=== PATIENT | male | born 1955 | race Caucasian/White ===

== ENCOUNTER 2018-01-17 12:53 | Inpatient (IN) | payer OTHER ==
[2018-01-17] MEDS ORDERED: KETOROLAC 30 MG/ML 1 ML VIAL IVP STA (14:10)
[2018-01-17] MEDS ORDERED: SODIUM CHLORIDE 0.9% 1,000 ML IV ONE (14:10)
[2018-01-17] MEDS ORDERED: MORPHINE SULFATE 4 MG/ML SYRINGE IVP STA (14:10)
--- NOTE | 2018-01-17 14:26 | ED ---
General Adult HPI - General Chief complaint: Headache Stated complaint: Headaches/double vision-sent from eye center Time Seen by Provider: 01/17/18 13:58 Source: patient Mode of arrival: ambulatory Limitations: no limitations - History of Present Illness Initial comments: Patient is a 62-year-old male who presents with a chief complaint of a headache secondary to herpes zoster ophthalmicus. The patient was diagnosed a week and a half ago and has been completing outpatient management. He was seen by Dr. Grigsby in the office today who was concerned that the patient had diplopia and that his symptoms were not resolving. He recommended that the patient presented to the emergency department for IV antivirals, pain control, and consultation to neurology. On arrival, the patient is in no acute distress. He states that he has severe pain behind the left eye. He states it's a stabbing pain. There are no aggravating or alleviating factors. - Related Data Home Medications Medication Instructions Recorded Confirmed Timolol [Betimol 0.5% Ophth Soln] 1 drop LEFT EYE BID 01/17/18 01/17/18 prednisoLONE ACETATE 1% OPHTH 1 drops LEFT EYE QID 01/17/18 01/17/18 [Pred Forte 1%] valACYclovir HCL [Valtrex] 1,000 mg PO Q8HR 01/17/18 01/17/18 Allergies Allergy/AdvReac Type Severity Reaction Status Date / Time Penicillins Allergy Unknown Verified 01/17/18 14:00 Childhood Review of Systems ROS Statement: Those systems with pertinent positive or pertinent negative responses have been documented in the HPI. ROS Other: All systems not noted in ROS Statement are negative. Eyes: Reports: vision change Past Medical History Past Medical History: No Reported History History of Any Multi-Drug Resistant Organisms: None Reported Past Surgical History: Hernia Repair Past Psychological History: No Psychological Hx Reported Smoking Status: Never smoker Past Alcohol Use History: None Reported Past Drug Use History: None Reported General Exam Limitations: no limitations General appearance: alert, in no apparent distress Head exam: Present: atraumatic, normocephalic Eye exam: Present: PERRL, EOMI, other (There is edema around the left eye, the area does not appear cellulitic.) ENT exam: Present: normal exam Neck exam: Present: normal inspection Respiratory exam: Present: normal lung sounds bilaterally. Absent: respiratory distress, wheezes Cardiovascular Exam: Present: regular rate, normal rhythm GI/Abdominal exam: Present: soft. Absent: distended, tenderness Rectal exam: Present: deferred Extremities exam: Present: normal inspection Back exam: Present: normal inspection, full ROM Neurological exam: Present: alert, oriented X3 Psychiatric exam: Present: normal affect, normal mood Skin exam: Present: warm, dry, intact Course Vital Signs 01/17/18 01/17/18 13:01 15:23 Temperature 98.9 F Pulse Rate 134 H Respiratory 18 16 Rate Blood Pressure 134/79 O2 Sat by Pulse 96 Oximetry Medical Decision Making - Medical Decision Making Patient presents with a chief complaint of headache secondary to herpes zoster ophthalmicus. On initial evaluation, vital signs are stable, patient in no distress. Patient states he is having severe pain behind his eye. I discussed this case with Dr. Grigsby who states the patient will be better served with IV antivirals, pain control, and consult neurology as the patient is experiencing diplopia. Patient treated with IV fluids, IV acyclovir, morphine and Toradol for pain. We'll plan to admit the patient with neuro consultation. 2:45 PM case discussed with Dr. Pruett who accepts admission and requests an MRI. Dr. Howe on consult and was updated on patients presence and condition. He agrees with work up. patient agreeable with plan. 3:58 PM Lab evaluation is unremarkable. on re-evaluation, patient is stable and states pain is improved. he is stable for transfer to the floor. - Lab Data Result diagrams: 01/17/18 15:00 01/17/18 15:00 Disposition Clinical Impression: Herpes zoster ophthalmicus of left eye, Headache Disposition: ADMITTED IP TO THIS [facility] Condition: Good Decision to Admit Reason: Admit from - Out of Hospital Transfer - Req. Specs Out of Hospital Transfer - Requested Specifics: Other Non-Acute
[2018-01-17] MEDS ORDERED: ACYCLOVIR SODIUM 900 MG in SODIUM CHLORIDE 0.9% 250 ML IV ONE (14:30)
[2018-01-17] MEDS ORDERED: NALOXONE 0.4 MG/ML 1 ML VIAL IV PRN (14:42)
[2018-01-17] MEDS ORDERED: traMADol 50 MG TAB PO PRN (14:42)
[2018-01-17] MEDS ORDERED: ONDANSETRON 4 MG/2 ML VIAL IVP PRN (14:42)
[2018-01-17 15:14] LABS: Basophils % (A) 0 %; Eosinophils # (A) 0.3 k/uL (0-0.7); Eosinophils % (A) 3 %; HCT 50.3 % (39.0-53.0); HGB 17.2 gm/dL (13.0-17.5); Lymphocytes # (A) 1.1 k/uL (1.0-4.8); Lymphocytes % (A) 16 %; MCH 30.8 pg (25.0-35.0); MCHC 34.3 g/dL (31.0-37.0); Mean Platelet Volume 6.4; Monocytes # (A) 0.3 k/uL (0-1.0); Monocytes % (A) 5 %; Neutrophils # (A) 5.3 k/uL (1.3-7.7); Neutrophils % (A) 74 %; Platelet Count 218 k/uL (150-450); RBC 5.59 m/uL (4.30-5.90); WBC 7.1 k/uL (3.8-10.6)
[2018-01-17 15:22] LABS: Anion Gap 13 mmol/L; Blood Urea Nitrogen 15 mg/dL (9-20); Calcium 9.1 mg/dL (8.4-10.2); Carbon Dioxide 25 mmol/L (22-30); Chloride 105 mmol/L (98-107); Glucose 108 mg/dL (74-99); Potassium 4.6 mmol/L (3.5-5.1); Sodium 143 mmol/L (137-145)
[2018-01-17] MEDS ORDERED: ACYCLOVIR SODIUM 500 MG in SODIUM CHLORIDE 0.9% 100 ML IVPB SCH (17:15)
--- NOTE | 2018-01-17 18:06 | P.HPIM ---
History of Present Illness 62-year-old male who presents with a chief complaint of a headache secondary to herpes zoster ophthalmicus. The patient was diagnosed a week and a half ago and has been completing outpatient management. He was seen by Dr. Grigsby in the office about a week ago and patient the was complaining of diplopia at the time and patient was seen by the remote sensing advisor today and patient can use to have diplopia and double vision. Patient's diplopia is uniocular it resolves with closing one eye. Patient does not have any nystagmus or any other ocular muscle weakness patient was on valacyclovir still has swelling of the left eye. 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 Patient was sent in here from [facility] advisor clinic for evaluation by neurology because of continued diplopia which may be related to ironirido-cyclitis. Patient denied any symptoms of fifth or seventh cranial nerves Review of Systems REVIEW OF SYSTEMS: CONSTITUTIONAL: No fever, no malaise, no fatigue. HEENT: No hearing problems. Denied any sore throat. CARDIOVASCULAR: No chest pain, orthopnea, PND, no palpitations, no syncope. PULMONARY: No shortness of breath, no cough, no hemoptysis. GASTROINTESTINAL: No diarrhea, no nausea, no vomiting, no abdominal pain. Normoactive bowel sounds. NEUROLOGICAL: No headaches, no weakness, no numbness. HEMATOLOGICAL: Denies any bleeding or petechiae. GENITOURINARY: Denies any burning micturition, frequency, or urgency. MUSCULOSKELETAL/RHEUMATOLOGICAL: Denies any joint pain, swelling, or any muscle pain. ENDOCRINE: Denies any polyuria or polydipsia. The rest of the 14-point review of systems is negative. Past Medical History Past Medical History: No Reported History History of Any Multi-Drug Resistant Organisms: None Reported Past Surgical History: Hernia Repair Past Psychological History: No Psychological Hx Reported Smoking Status: Never smoker Past Alcohol Use History: None Reported Past Drug Use History: None Reported Medications and Allergies Home Medications Medication Instructions Recorded Confirmed Type Timolol [Betimol 0.5% Ophth Soln] 1 drop LEFT EYE BID 01/17/18 01/17/18 History prednisoLONE ACETATE 1% OPHTH 1 drops LEFT EYE QID 01/17/18 01/17/18 History [Pred Forte 1%] valACYclovir HCL [Valtrex] 1,000 mg PO Q8HR 01/17/18 01/17/18 History Allergies Allergy/AdvReac Type Severity Reaction Status Date / Time Penicillins Allergy Unknown Verified 01/17/18 14:00 Childhood Physical Exam Vitals: Vital Signs Temp Pulse Resp BP Pulse Ox 01/17/18 16:00 98.3 F 86 16 153/76 94 L 01/17/18 15:23 16 01/17/18 13:01 98.9 F 134 H 18 134/79 96 Intake and Output 01/17/18 01/17/18 01/17/18 06:59 14:59 22:59 Other: Weight 89.539 kg PHYSICAL EXAMINATION: GENERAL: The patient is alert and oriented x3, not in any acute distress. Well developed, well nourished. HEENT: Pupils are round and equally reacting to light. Normocephalic, atraumatic. No pharyngeal erythema. No thyromegaly. Patient's left eye is swollen, did not assess conjunctiva CARDIOVASCULAR: S1 and S2 present. No murmurs, rubs, or gallops. PULMONARY: Chest is clear to auscultation, no wheezing or crackles. ABDOMEN: Soft, nontender, nondistended, normoactive bowel sounds. No palpable organomegaly. MUSCULOSKELETAL: No joint swelling or deformity. EXTREMITIES: No cyanosis, clubbing, or pedal edema. NEUROLOGICAL: Gross neurological examination did not reveal any focal deficits. Patient's cranial nose are intact patient does not have any ocular muscle weakness or nystagmus, vision appears to be intact SKIN: No rashes. Results CBC & Chem 7: 01/17/18 15:00 01/17/18 15:00 Labs: Abnormal Lab Results - Last 24 Hours (Table) 01/17/18 Range/Units 15:00 Glucose 108 H (74-99) mg/dL Thrombosis Risk Factor Assmnt - Choose All That Apply Any of the Below Risk Factors Present?: Yes Each Factor Represents 1 point: Age 41-60 years, Obesity (BMI >25) Other Risk Factors: No Other congenital or acquired thrombophilia - If yes, enter type in comment: No Thrombosis Risk Factor Assessment Total Risk Factor Score: 2 Thrombosis Risk Factor Assessment Level: Low Risk Assessment and Plan Plan: -Diplopia: Probably secondary to herpes zoster Irido-cyclitis, neurology is being consulted because of the continued symptoms and for the neurological workup if necessary and infectious disease will be consulted and patient will be started on IV acyclovir. -Headache secondary to assessment #1 -Herpes zoster ophthalmicus
[2018-01-17] MEDS: MORPHINE SULFATE 4 MG/ML SYRINGE IV PRN (19:10)
--- NOTE | 2018-01-17 20:52 | MR ---
EXAMINATION TYPE: MR brain wo/w con DATE OF EXAM: 01/17/2018 COMPARISON: NONE HISTORY: Diplopia, herpes zoster TECHNIQUE: Multiplanar, multisequence images of the brain and brainstem is performed without and with IV contras t, utilizing 9 mL intravenous Gadavist . FINDINGS: Diffusion weighted images demonstrate no evidence of a recent infarct or other diffusion ab normality. There is no extra-axial fluid collection. Scattered hyperintensities in the periventricul ar, pericallosal, subcortical white matter are noted on inversion recovery and T2-weighted sequences, approximately 15 foci. The ventricular system and cisternal spaces are normal in size and appearanc e. The brain volume is age appropriate. Midline structures demonstrate normal morphology. The craniocervical junction appears within normal limits. Post contrast images demonstrate no abnormal enhancement. The dural venous sinuses appear pa tent. The visualized sinuses are showing mucoperiosteal thickening in the maxillary sinuses, ethmoid air cells and frontal sinus and the globes are intact. IMPRESSION: Nonspecific white matter demyelination. No abnormal enhancement. Mild sinus disease.
--- NOTE | 2018-01-17 21:53 | P.CNNES ---
History of Present Illness Consult date: 01/17/18 Reason for Consult: Patient admitted with acute herpes zoster ophthalmicus and diplopia. History of Present Illness: This patient is a 62-year-old right-handed white male who states that about 2 weeks ago he had developed severe eye pain involving his left eye. He was seen by a director of laboratory operations seen [facility] and apparently was started on some treatment. Apparently a week ago his symptoms worsened and he was seen locally by the director of laboratory operations Dr. Grigsby. Patient was complaining of ongoing headache symptoms as well as diplopia with an onset of about 1 week. His headaches have been present for about 2 weeks involving mostly his left side. Patient was started nonspecific antiviral treatment as he was diagnosed with herpes Auster ophthalmicus. He states he was placed on oral acyclovir and had completed a complete course of 10 days. This did not help his overall condition. He was seen back in the ophthalmology clinic today and was advised to come to the hospital for admission for further evaluation of his diplopia. Patient states that he was having vertical diplopia for the past 1 week. If he closes one eye the symptoms completely resolved. His headaches have been present for 2 weeks and mostly involving the left side. The patient was subsequently admitted today to the hospital as per the request of Dr. Grigsby. Infectious disease has been consulted as well and we are waiting there recommendations. The patient states that his headache has been present for 2 weeks and mostly involves the left side. This headache symptoms may be related to postherpetic neuralgia. The patient was sent for MRI of the brain today after admission for further assessment. This MRI was done with and without contrast. Impression of the MRI completed today revealed nonspecific white matter demyelination. No abnormal enhancement was seen. There was mild sinus disease noted. Since the patient continues to have headache we have recommended the patient undergo a lumbar puncture for further evaluation to rule out any possibility of encephalitis. This seems to be less likely as he has remained afebrile however due to his headache symptoms further evaluation with spinal fluid analysis is in order. We have discussed this today with the patient. He is agreeable and we will arrange for a lumbar puncture to be done by anesthesia tomorrow morning for further evaluation. Patient will be check for herpes simplex as well as herpes zoster in the spinal fluid. The patient has no previous history of any other major medical condition. He has been started on IV acyclovir at a dosage of 500 mg IV piggyback every 8 hours. We would recommend to continue him on this until he is seen by infectious disease. We will await any further recommendations from Dr. Grigsby regarding his overall retinal changes and I changes secondary to his herpes zoster ophthalmicus. His overall prognosis at this time remains guarded. Review of Systems Constitutional: Denies chills, Denies fever Eyes: left diplopia, left pain, left photophobia, denies blurred vision Ears, nose, mouth and throat: Denies headache, Denies sore throat Cardiovascular: Denies chest pain, Denies shortness of breath Respiratory: Denies cough Gastrointestinal: Denies abdominal pain, Denies diarrhea, Denies nausea, Denies vomiting Musculoskeletal: Denies myalgias Integumentary: Denies pruritus, Denies rash Neurological: Reports double vision, Denies numbness, Denies weakness Psychiatric: Denies anxiety, Denies depression Endocrine: Denies fatigue, Denies weight change Past Medical History Past Medical History: No Reported History History of Any Multi-Drug Resistant Organisms: None Reported Past Surgical History: Hernia Repair Past Psychological History: No Psychological Hx Reported Smoking Status: Never smoker Past Alcohol Use History: None Reported Past Drug Use History: None Reported Medications and Allergies Home Medications Medication Instructions Recorded Confirmed Type Timolol [Betimol 0.5% Ophth Soln] 1 drop LEFT EYE BID 01/17/18 01/17/18 History prednisoLONE ACETATE 1% OPHTH 1 drops LEFT EYE QID 01/17/18 01/17/18 History [Pred Forte 1%] valACYclovir HCL [Valtrex] 1,000 mg PO Q8HR 01/17/18 01/17/18 History Allergies Allergy/AdvReac Type Severity Reaction Status Date / Time Penicillins Allergy Unknown Verified 01/17/18 14:00 Childhood Physical Examination - Vital Signs Vital Signs: Vital Signs Temp Pulse Resp BP Pulse Ox 01/17/18 16:00 98.3 F 86 16 153/76 94 L 01/17/18 15:23 16 01/17/18 13:01 98.9 F 134 H 18 134/79 96 Intake and Output 01/17/18 01/17/18 01/17/18 06:59 14:59 22:59 Other: Weight 89.539 kg - Constitutional General appearance: average body habitus, cooperative - EENT EENT: PERRL, mucous membranes moist - Respiratory Respiratory: lungs clear, normal breath sounds - Cardiovascular Cardiovascular: regular rate, normal S1, normal S2 Extremities: no peripheral edema bilaterally - Gastrointestinal Gastrointestinal: normoactive bowel sounds - Integumentary Integumentary: normal - Neurologic Cranial nerve examination: PERRL, EOMI, VFF, V1/V2/V3 grossly intact, face symmetric, tongue midline, intact gag reflex, intact corneal reflex, normal palatal elevation Speech examination: intact Sensorimotor examination: intact Motor examination - right side: 4/5: biceps, triceps, wrist flexion, wrist extension, waredresser, hip flexors, knee extensors, dorsiflexion, toe extension (EHL) , plantarflexion Motor examination - left side: 4/5: biceps, triceps, wrist flexion, wrist extension, waredresser, hip flexors, knee extensors, dorsiflexion, toe extension (EHL) , plantarflexion Detailed sensory examination: intact Reflex and gait examination: intact Reflexes: 1+: ankle, bicep, knee, tricep - Musculoskeletal Musculoskeletal: no pain - Psychiatric Psychiatric: mood/affect appropriate, cooperative Results - Laboratory Findings CBC and BMP: 01/17/18 15:00 01/17/18 15:00 Abnormal Lab Findings: Abnormal Labs 01/17/18 15:00 Glucose 108 H Assessment and Plan (1) Headache Current Visit: Yes Status: Acute Code(s): R51 - HEADACHE SNOMED Code(s): 77257565 (2) Herpes zoster ophthalmicus of left eye Current Visit: Yes Status: Acute Code(s): B02.30 - ZOSTER OCULAR DISEASE, UNSPECIFIED SNOMED Code(s): 92920250 Plan: This patient is a 8-year-old male who was admitted with a two-week history of severe left eye pain and double vision. Patient states he was treated initially 2 weeks ago for left eye infection. He was seen locally about a week ago by Dr. Grigsby. He was diagnosed with herpes zoster ophthalmicus and was started on oral acyclovir. He completed his course of therapy and was seen back today for follow-up by Dr. Grigsby. Patient continued to complain of diplopia and headache and for this reason was admitted to hospital today for further evaluation. He underwent MRI of the brain results which are noted above. No evidence of any abnormal enhancement or acute changes. We have recommended the patient to undergo lumbar puncture tomorrow for further evaluation. Infectious disease has been consulted as well further their recommendations regarding IV acyclovir. He should continue on this current dosage of 500 mg IV piggyback every 8 hours at this time. We have reviewed the MRI be poor today with the patient. We will have him complete his lumbar puncture and we'll give further recommendations depending on those results. His overall prognosis at this time remains very guarded. Clearly no evidence of brainstem involvement to explain his diplopia at this time. We will continue close neurological follow-up for this patient during this admission. Await further recommendations from other specialists seeing this patient on this admission. His overall prognosis at this time remains very guarded. Time with Patient: Greater than 30
[2018-01-17] MEDS: TIMOLOL 0.5% OPHTH DROPS 5 ML BTL LEFT EYE SCH (22:23)
[2018-01-17] MEDS: prednisoLONE ACETATE 1% OPHTH DROPS 5 ML BTL LEFT EYE SCH (22:23)
[2018-01-17] MEDS: KETOROLAC 30 MG/ML 1 ML VIAL IVP PRN (22:26)
[2018-01-18] MEDS: ACYCLOVIR SODIUM 500 MG in SODIUM CHLORIDE 0.9% 100 ML IVPB SCH ×3 (00:09→15:32)
[2018-01-18] MEDS: KETOROLAC 30 MG/ML 1 ML VIAL IVP PRN ×2 (04:12→16:59)
[2018-01-18] MEDS: prednisoLONE ACETATE 1% OPHTH DROPS 5 ML BTL LEFT EYE SCH ×4 (08:38→20:48)
[2018-01-18] MEDS: TIMOLOL 0.5% OPHTH DROPS 5 ML BTL LEFT EYE SCH ×2 (08:39→20:48)
[2018-01-18] MEDS: MORPHINE SULFATE 4 MG/ML SYRINGE IV PRN ×3 (08:47→23:09)
[2018-01-18] MEDS ORDERED: IV FLUID CONTINUATION 800 ML IV ONE (11:30)
--- NOTE | 2018-01-18 15:37 | P.PN ---
Subjective 62-year-old admitted for diplopia underwent MRI which did not show any significant abnormality neurology evaluated the patient is recommending LP. Patient will be evaluated by infectious disease patient is presently on IV acyclovir. Patient still has some swelling in the left eye. Constitutional: Denied any fatigue denied any fever. Cardio vascular: denied any chest pain, palpitations Gastrointestinal denied any nausea vomiting Pulmonary: Denied any shortness of breath cough Neurologic denied any new focal deficits Objective - Vital Signs Vital signs: Vital Signs Temp 98.3 F 01/18/18 11:21 Pulse 75 01/18/18 12:23 Resp 18 01/18/18 12:23 BP 180/108 01/18/18 12:25 Pulse Ox 96 01/18/18 12:23 Intake & Output 01/17/18 01/18/18 01/18/18 18:59 06:59 18:59 Intake Total 1099 10 Balance 1099 10 Weight 89.539 kg Intake: IV 10 Intake, IV Titration 1099 Amount Acyclovir Sodium 500 mg 100 In Sodium Chloride 0.9% 100 ml @ 100 mls/hr IVPB Q8HR [facility] Rx#:[id number] Sodium Chloride 0.9% 1, 999 000 ml @ 999 mls/hr IV . Q1H1M ONE Rx#:[id number] Other: Voiding Method Toilet # Voids 1 - Exam PHYSICAL EXAMINATION: GENERAL: The patient is alert and oriented x3, not in any acute distress. Well developed, well nourished. HEENT: Pupils are round and equally reacting to light. Normocephalic, atraumatic. No pharyngeal erythema. No thyromegaly. Patient's left eye is swollen, did not assess conjunctiva CARDIOVASCULAR: S1 and S2 present. No murmurs, rubs, or gallops. PULMONARY: Chest is clear to auscultation, no wheezing or crackles. ABDOMEN: Soft, nontender, nondistended, normoactive bowel sounds. No palpable organomegaly. MUSCULOSKELETAL: No joint swelling or deformity. EXTREMITIES: No cyanosis, clubbing, or pedal edema. NEUROLOGICAL: Gross neurological examination did not reveal any focal deficits. Patient's cranial nose are intact patient does not have any ocular muscle weakness or nystagmus, vision appears to be intact SKIN: No rashes. - Labs CBC & Chem 7: 01/17/18 15:00 01/17/18 15:00 Labs: Abnormal Lab Results - Last 24 Hours (Table) 01/17/18 Range/Units 15:00 Glucose 108 H (74-99) mg/dL Assessment and Plan Plan: -Diplopia: Probably secondary to herpes zoster Irido-cyclitis, neurology is being consulted because of the continued symptoms and for the neurological workup if necessary and infectious disease will be consulted and patient will be started on IV acyclovir.patient's MRI did not show any significant abnormality that can explain diplopia. Patient underwent LP results of which are still pending -Headache secondary to assessment #1 -Herpes zoster ophthalmicus
[2018-01-18 16:21] LABS: Appearance,CSF Clear; CSF Tube Number 4; CSF Tube Volume 2; Nucleated Cells, CSF 1 u/L (0-5); Red Blood Cell,CSF 0 u/L (0-10)
[2018-01-18 16:26] LABS: Glucose,CSF 52 mg/dL (40-70); Total Protein,CSF 70 mg/dL (12-60)
[2018-01-18] MEDS ORDERED: ACYCLOVIR SODIUM 900 MG in SODIUM CHLORIDE 0.9% 250 ML IV ONE (22:30)
[2018-01-18] MEDS: methylPREDNISolone SOD SUCCI 125 MG/2 ML VIAL IV SCH (23:02)
--- NOTE | 2018-01-18 23:17 | P.PN ---
Subjective Progress Note Date: 01/18/18 This patient is a 62-year-old right-handed white male who was admitted to Hospital with symptoms of herpes zoster ophthalmicus involving his left eye. Patient was found to have increased headache and diplopia and was admitted to hospital for further evaluation. Patient underwent MRI of the brain yesterday which failed to reveal any significant findings yesterday. There was no evidence of any brainstem infarction that would account for his diplopia. He may require reevaluation by Dr. Grigsby in the ophthalmology clinic once he is discharged. He underwent a lumbar puncture today and we are waiting final results of the spinal fluid analysis. Patient is to be evaluated by infectious disease and he is currently been placed on IV acyclovir. He still has some swelling around his left eye on examination today. He states his headaches are slightly better. We are awaiting the final spinal fluid results to rule out any possibility of herpes zoster in the CSF. His CSF protein was slightly elevated at 70. CSF glucose was 52. His Gram stain revealed no organisms. As noted we are still awaiting the herpes zoster and herpes simplex virus analysis in the spinal fluid. We will continue close neurological follow-up for the patient during this admission. Objective - Vital Signs Vital signs: Vital Signs Temp 98.6 F 01/18/18 14:17 Pulse 90 01/18/18 14:17 Resp 18 01/18/18 14:17 BP 183/105 01/18/18 14:17 Pulse Ox 98 01/18/18 14:17 Intake & Output 01/18/18 01/18/18 01/19/18 06:59 18:59 06:59 Intake Total 1099 10 Balance 1099 10 Intake: IV 10 Intake, IV Titration 1099 Amount Acyclovir Sodium 500 mg 100 In Sodium Chloride 0.9% 100 ml @ 100 mls/hr IVPB Q8HR [facility] Rx#:[id number] Sodium Chloride 0.9% 1, 999 000 ml @ 999 mls/hr IV . Q1H1M ONE Rx#:[id number] Other: Voiding Method Toilet # Voids 1 1 # Bowel Movements 0 - Exam Physical examination: PHYSICAL EXAMINATION: Patient is resting comfortably in bed. VITAL SIGNS: Blood pressure is [173/105]. Heart rate is [90]. Respiration is [18 ]. Temperature is [98.7]. HEENT: Head is atraumatic, neck is supple, there were no carotid bruits. CHEST: Lungs are clear to auscultation and percussion. CARDIAC: S1, S2 normal rate and rhythm. There is no murmur. ABDOMEN: Soft and nontender. Bowel sounds are present. EXTREMITIES: There is no pedal edema. Peripheral pulses are present. Neurological examination: Patient's neurological examination is unchanged from yesterday. He continues to have swelling around his left eyelid. He is being treated for his herpes zoster ophthalmicus involving the left eye. His neurological examination reveals slight eye gaze weakness on testing. There is no focal motor deficit on examination. - Labs CBC & Chem 7: 01/17/18 15:00 01/17/18 15:00 Labs: Abnormal Lab Results - Last 24 Hours (Table) 01/17/18 Range/Units 11:30 CSF Total Protein 70 H (12-60) mg/dL Microbiology - Last 24 Hours (Table) 01/17/18 11:30 CSF Gram Stain - Preliminary Cerebral Spinal Fluid CSF Culture - Preliminary Assessment and Plan (1) Headache Current Visit: Yes Status: Acute Code(s): R51 - HEADACHE SNOMED Code(s): 10030131 (2) Herpes zoster ophthalmicus of left eye Current Visit: Yes Status: Acute Code(s): B02.30 - ZOSTER OCULAR DISEASE, UNSPECIFIED SNOMED Code(s): 93382083 Plan: This patient is a 8-year-old male who was admitted with a two-week history of severe left eye pain and double vision. Patient states he was treated initially 2 weeks ago for left eye infection. He was seen locally about a week ago by Dr. Grigsby. He was diagnosed with herpes zoster ophthalmicus and was started on oral acyclovir. He completed his course of therapy and was seen back today for follow-up by Dr. Grigsby. Patient continued to complain of diplopia and headache and for this reason was admitted to hospital today for further evaluation. He underwent MRI of the brain results which are noted above. No evidence of any abnormal enhancement or acute changes. We have recommended the patient to undergo lumbar puncture tomorrow for further evaluation. Infectious disease has been consulted as well further their recommendations regarding IV acyclovir. He should continue on this current dosage of 500 mg IV piggyback every 8 hours at this time. We have reviewed the MRI today with the patient. We will have him complete his lumbar puncture and we will give further recommendations depending on those results. His overall prognosis at this time remains very guarded. Clearly no evidence of brainstem involvement to explain his diplopia at this time. We will continue close neurological follow-up for this patient during this admission. Patient underwent lumbar puncture today results of which are noted above. We will await further recommendations from infectious disease. His overall prognosis at this time remains very guarded.
[2018-01-19] MEDS: methylPREDNISolone SOD SUCCI 125 MG/2 ML VIAL IV SCH ×4 (05:35→23:32)
[2018-01-19] MEDS: KETOROLAC 30 MG/ML 1 ML VIAL IVP PRN ×4 (05:35→23:29)
--- NOTE | 2018-01-19 06:41 | CONS ---
CONSULTATION DATE OF SERVICE: 01/18/2018. REASON FOR CONSULTATION: Herpes zoster ophthalmicus and diplopia. HISTORY OF PRESENT ILLNESS: The patient is a 62-year-old male who apparently developed a rash to the left periorbital area about 2 weeks ago for which the patient has been evaluated by a local office machinery or equipment installer where the patient was started on Valtrex 1 gram q.8. The patient's rash seemed to have been improving; however, the patient did have problem with drooping of the left upper eyelid along with diplopia for which the patient followed up with office machinery or equipment installer in [facility], Dr. Grigsby, who apparently started the patient on another dose of Valtrex and gave some eye drops. The patient also has been complaining of headaches, mostly in the left periorbital area, describing to more of a dull aching pain 5 to 6/10, with no radiation. The patient denies having any nausea, no vomiting. Denies having any fever or any chills. The patient was re-evaluated in the ophthalmology clinic yesterday and the patient with diplopia and no improvement has been sent to the ER for further evaluation and an MRI which was completed which did show some nonspecific changes. The patient was started on acyclovir at 500 mg q.8 admitted to the hospital. Infectious Disease was consulted for further recommendation. The patient also underwent a lumbar puncture this afternoon, which was clear, colorless, only 1 cell, glucose of 52, protein was 70. His white count is normal. The patient's rash has currently completed resolved. The main symptom is to be headache and diplopia. REVIEW OF SYSTEMS: CONSTITUTIONAL: Positive for weakness, but no high-grade fever. EYES: As per HPI. ENT: No complaint. RESPIRATORY: No complaint. CARDIOVASCULAR: No complaint. GENITOURINARY: No complaint. GASTROINTESTINAL: No complaint. MUSCULOSKELETAL: No complaint. INTEGUMENTARY: No complaint. PSYCHOLOGICAL: No complaint. ENDOCRINE: No complaint. NEUROLOGICAL: As per HPI. PAST MEDICAL HISTORY: No major illnesses. PAST SURGICAL HISTORY: Hernia repair. SOCIAL HISTORY: Denies smoking, drinking, or any drug use. FAMILY HISTORY: No pertinent findings noticed. ALLERGIES: Allergies to PENICILLIN. No history of anaphylaxis. MEDICATIONS: Medications include the patient is currently on acyclovir 500 IV q.8. He is on Toradol, morphine sulfate, Narcan, Zofran, prednisone eyedrops, Timoptic and Ultram. PHYSICAL EXAMINATION: On examination, blood pressure is 183/105 with a pulse of 90, temperature 98.6. He is 98% on room air. General description is a middle-aged male lying in bed in no distress. No tachypnea or accessory muscle of respiration use. HEENT examination shows no pallor or scleral icterus. His pupils are equal, round and reactive. Oral mucous membrane dry. No pharyngeal erythema or thrush. NECK: Trachea central. No thyromegaly. LUNGS: Unlabored breathing, clear to auscultation anteriorly. No wheeze or crackle. HEART: S1, S2. Regular rate and rhythm. ABDOMEN: Soft, no tenderness. No guarding or rigidity. EXTREMITIES: No edema feet. SKIN EXAMINATION: No rashes or mass palpable. NEUROLOGICAL: Patient is awake, alert, oriented x3. Mood and affect normal. LABS: Hemoglobin is 17.2, white count 7.1 with a BUN of 15, creatinine 0.70. Electrolytes have been normal. CSF examination was normal except slightly elevated protein. MRI with nonspecific changes. DIAGNOSTIC IMPRESSION AND PLAN: Patient with left-sided headache in a patient who also has drooping of the left upper eyelid with diplopia in a patient with recent diagnosis of herpes zoster ophthalmicus that has been treated with Valtrex 1 gram q.8 for more than 7 days, which is an appropriate dose now which seemed to have possible with a question of possible or because of his diplopia and drooping of the upper eyelid. The patient did have a CSF examination completed and essentially normal except mildly elevated protein. PLAN: 1. Acyclovir dose should be adjusted to 10 mg/kg which is recommended use for acute herpes zoster, but clinically I think the patient has received adequate antiviral beginning of treatment with resolution of his rash. 2. Might try short course of steroid to see if that will help cut down the inflammation of those nerves and help with his neurologic symptom. 3. The patient will benefit from a detailed examination or possible transfer to tertiary care if his symptoms do not improve in the next 24 hours. 4. The patient also need aggressive treatment underlying hypertension that may be contributing to some of his symptomatology. Thank you for this consultation. Will follow this patient along with you. MMODL / IJN: [id number] /
[2018-01-19] MEDS: prednisoLONE ACETATE 1% OPHTH DROPS 5 ML BTL LEFT EYE SCH ×4 (07:53→20:33)
[2018-01-19] MEDS: TIMOLOL 0.5% OPHTH DROPS 5 ML BTL LEFT EYE SCH ×2 (07:53→20:33)
[2018-01-19] MEDS ORDERED: MORPHINE ORAL SOLN 10 MG/5 ML CUP PO PRN (11:23)
--- NOTE | 2018-01-19 13:25 | P.PN ---
Subjective 62-year-old admitted for diplopia underwent MRI which did not show any significant abnormality neurology evaluated the patient is recommending LP. Patient will be evaluated by infectious disease patient is presently on IV acyclovir. Patient still has some swelling in the left eye. Patient still complaining of from diplopia Objective - Vital Signs Vital signs: Vital Signs Temp 98.3 F 01/19/18 07:00 Pulse 89 01/19/18 07:00 Resp 20 01/19/18 07:00 BP 141/93 01/19/18 07:00 Pulse Ox 93 L 01/19/18 07:00 Intake & Output 01/18/18 01/19/18 01/19/18 18:59 06:59 18:59 Intake Total 10 500 320 Balance 10 500 320 Weight 89.539 kg Intake: IV 10 Oral 500 320 Other: Voiding Method Toilet Toilet Toilet # Voids 1 1 # Bowel Movements 0 0 - Exam GENERAL: The patient is alert and oriented x3, not in any acute distress. Well developed, well nourished. HEENT: Pupils are round and equally reacting to light. Normocephalic, atraumatic. No pharyngeal erythema. No thyromegaly. Patient's left eye is swollen, did not assess conjunctiva -Left eye conjunctiva is related, mild. No vesicles or rashes noted, no ulcers CARDIOVASCULAR: S1 and S2 present. No murmurs, rubs, or gallops. PULMONARY: Chest is clear to auscultation, no wheezing or crackles. ABDOMEN: Soft, nontender, nondistended, normoactive bowel sounds. No palpable organomegaly. MUSCULOSKELETAL: No joint swelling or deformity. EXTREMITIES: No cyanosis, clubbing, or pedal edema. NEUROLOGICAL: Gross neurological examination did not reveal any focal deficits. Patient's cranial nose are intact patient does not have any ocular muscle weakness or nystagmus, vision appears to be intact SKIN: No rashes. - Labs CBC & Chem 7: 01/17/18 15:00 01/17/18 15:00 Labs: Abnormal Lab Results - Last 24 Hours (Table) 01/17/18 Range/Units 11:30 CSF Total Protein 70 H (12-60) mg/dL Microbiology - Last 24 Hours (Table) 01/17/18 11:30 CSF Gram Stain - Preliminary Cerebral Spinal Fluid CSF Culture - Preliminary Assessment and Plan Plan: -Diplopia: Probably secondary to herpes zoster Irido-cyclitis, neurology is being consulted because of the continued symptoms and for the neurological workup if necessary and infectious disease will be consulted and patient will be started on IV acyclovir.patient's MRI did not show any significant abnormality that can explain diplopia. Patient underwent LP results of which are noted, looks noninfectious. Follow up with ID. Patient's states that his diplopia has resolved today -Headache secondary to assessment #1 -Herpes zoster ophthalmicus
--- NOTE | 2018-01-19 21:05 | PN ---
PROGRESS NOTE DATE OF SERVICE: 01/19/2018 REASON FOR FOLLOWUP: Herpes zoster ophthalmicus with diplopia. INTERVAL HISTORY: The patient is afebrile. The patient's left periorbital swelling has improved as well as the headache, and the diplopia has improved as well compared to yesterday after the patient was started on steroids. Patient denies having any chest pain, shortness of breath or cough. No abdominal pain or any diarrhea. PHYSICAL EXAMINATION: Blood pressure is 141/93 with a pulse of 89, temperature of 98.3. He is 93% on room air. General description is a middle-aged male lying in bed in no distress. HEENT EXAMINATION: The left seems to have improved. No rash. LUNGS: Unlabored breathing. Clear to auscultation anteriorly. HEART: S1, S2. Regular rate and rhythm. ABDOMEN: Soft. No tenderness. LABS: No new labs have been obtained today. DIAGNOSTIC IMPRESSION AND PLAN: Patient with left herpes zoster ophthalmicus that has been treated in the outpatient setting with oral Valtrex, now coming with diplopia, more likely secondary to the involvement of the with some improvement with the steroid possibly helping with the inflammation surrounding the nerve. That may be continued for a short course and transition to oral steroids on discharge. Continue with supportive care. MMODL / IJN: [id number] /
[2018-01-20 00:07] VITALS: RESP 20
--- NOTE | 2018-01-20 00:48 | P.PN ---
Subjective Progress Note Date: 01/19/18 This patient is a 62-year-old right-handed white male who was admitted to Hospital with symptoms of herpes zoster ophthalmicus involving his left eye. Patient was found to have increased headache and diplopia and was admitted to hospital for further evaluation. Patient underwent MRI of the brain yesterday which failed to reveal any significant findings yesterday. There was no evidence of any brainstem infarction that would account for his diplopia. He may require reevaluation by Dr. Grigsby in the ophthalmology clinic once he is discharged. He underwent a lumbar puncture today and we are waiting final results of the spinal fluid analysis. Patient is to be evaluated by infectious disease and he is currently been placed on IV acyclovir. He still has some swelling around his left eye on examination today. He states his headaches are slightly better. We are awaiting the final spinal fluid results to rule out any possibility of herpes zoster in the CSF. His CSF protein was slightly elevated at 70. CSF glucose was 52. His Gram stain revealed no organisms. As noted we are still awaiting the herpes zoster and herpes simplex virus analysis in the spinal fluid. CSF spinal fluid did come back negative for HSV 1 and HSV 2. The patient has shown significant improvement today in that there is less swelling of the left eyelid. He also states that since early afternoon his double vision has completely resolved. He is to continue on IV acyclovir. We' re waiting any further recommendations from infectious disease. Patient possibly will be able to be discharged home soon and may follow-up with Dr. Grigsby in the outpatient clinic. We will continue close neurological follow-up for the patient during this admission. His overall prognosis remains guarded. Objective - Vital Signs Vital signs: Vital Signs Temp 97.2 F L 01/19/18 15:00 Pulse 100 01/19/18 15:00 Resp 16 01/19/18 15:00 BP 171/94 01/19/18 15:00 Pulse Ox 95 01/19/18 15:00 Intake & Output 01/18/18 01/19/18 01/19/18 18:59 06:59 18:59 Intake Total 10 500 560 Balance 10 500 560 Weight 89.539 kg Intake: IV 10 Oral 500 560 Other: Voiding Method Toilet Toilet Toilet # Voids 1 1 1 # Bowel Movements 0 0 - Exam Physical examination: PHYSICAL EXAMINATION: Patient is resting comfortably in bed. VITAL SIGNS: Blood pressure is [171/94]. Heart rate is [100]. Respiration is [16 ]. Temperature is [97.2]. HEENT: Head is atraumatic, neck is supple, there were no carotid bruits. CHEST: Lungs are clear to auscultation and percussion. CARDIAC: S1, S2 normal rate and rhythm. There is no murmur. ABDOMEN: Soft and nontender. Bowel sounds are present. EXTREMITIES: There is no pedal edema. Peripheral pulses are present. Neurological examination: Patient's neurological examination is unchanged from yesterday. He continues to have swelling around his left eyelid. He is being treated for his herpes zoster ophthalmicus involving the left eye. His neurological examination reveals slight eye gaze weakness on testing. There is no focal motor deficit on examination. - Labs CBC & Chem 7: 01/17/18 15:00 01/17/18 15:00 Labs: Abnormal Lab Results - Last 24 Hours (Table) 01/17/18 Range/Units 11:30 CSF Total Protein 70 H (12-60) mg/dL Microbiology - Last 24 Hours (Table) 01/17/18 11:30 CSF Gram Stain - Preliminary Cerebral Spinal Fluid CSF Culture - Preliminary Assessment and Plan (1) Headache Current Visit: Yes Status: Acute Code(s): R51 - HEADACHE SNOMED Code(s): 84271613 (2) Herpes zoster ophthalmicus of left eye Current Visit: Yes Status: Acute Code(s): B02.30 - ZOSTER OCULAR DISEASE, UNSPECIFIED SNOMED Code(s): 08036508 Plan: Patient being treated for acute symptoms of herpes zoster ophthalmicus. This is affected his left eye. He is showing good improvement today since admission to hospital a few days ago. He did undergo an MRI of the brain which did come back negative for any acute changes. No evidence of brainstem stroke to produce diplopia. The patient continues on IV acyclovir. His diplopia completely resolve this afternoon. His left eyelid swelling also much improved today. We will continue to follow his progress closely during this admission. Spinal fluid results are as noted above. His overall prognosis at this time remains guarded. We will await further recommendations from infectious disease. His overall prognosis at this time remains guarded.
[2018-01-20] MEDS: methylPREDNISolone SOD SUCCI 125 MG/2 ML VIAL IV SCH ×2 (05:32→12:51)
[2018-01-20 06:07] VITALS: BP 133/76; PULSE 104; TEMP 97.5
[2018-01-20] MEDS: TIMOLOL 0.5% OPHTH DROPS 5 ML BTL LEFT EYE SCH (08:01)
[2018-01-20] MEDS: prednisoLONE ACETATE 1% OPHTH DROPS 5 ML BTL LEFT EYE SCH ×2 (08:01→12:51)
--- NOTE | 2018-01-20 14:33 | PN ---
PROGRESS NOTE DATE OF SERVICE: 01/20/2018 REASON FOR FOLLOWUP: Left thigh presumptive pulmonary with diplopia. INTERVAL HISTORY: The patient is afebrile the patient diplopia has resolved. His headache has improved. Denies any chest pain, shortness of breath, no cough, no abdominal pain, no diarrhea. PHYSICAL EXAMINATION: Blood pressure 133/76, pulse of 104, temperature 98.5, Pulse ox room air is .54% we description is a middle-aged male lying in bed, in no distress. RESPIRATORY SYSTEM: Unlabored breathing, clear to auscultation anteriorly. HEART: S1, S2. Regular rate and rate. ABDOMEN: Soft, no tenderness. LABS: HSV, DNA by PCR has been negative. DIAGNOSTIC IMPRESSION AND PLAN: Patient with herpes zoster ophthalmicus has been treated in the outpatient setting with a 12 day course of Valtrex should be more than enough and does not need any further antibiotic at this point. Patient did have a possible trochanter paralysis that has led to diplopia and seemed to have improved with the steroids, that it can be tapered down to oral prednisone in the outpatient setting. Continue supportive care. No need for any antiviral on discharge. MMODL / IJN: [id number] /
[2018-01-20] MEDS: KETOROLAC 30 MG/ML 1 ML VIAL IVP PRN (14:38)
--- NOTE | 2018-01-20 16:56 | P.PN ---
Subjective Progress Note Date: 01/20/18 This patient is a 62-year-old right-handed white male who was admitted to Hospital with symptoms of herpes zoster ophthalmicus involving his left eye. Patient was found to have increased headache and diplopia and was admitted to hospital for further evaluation. Patient underwent MRI of the brain yesterday which failed to reveal any significant findings yesterday. There was no evidence of any brainstem infarction that would account for his diplopia. He may require reevaluation by Dr. Grigsby in the ophthalmology clinic once he is discharged. He underwent a lumbar puncture today and we are waiting final results of the spinal fluid analysis. Patient is to be evaluated by infectious disease and he is currently been placed on IV acyclovir. He still has some swelling around his left eye on examination today. He states his headaches are slightly better. We are awaiting the final spinal fluid results to rule out any possibility of herpes zoster in the CSF. His CSF protein was slightly elevated at 70. CSF glucose was 52. His Gram stain revealed no organisms. As noted we are still awaiting the herpes zoster and herpes simplex virus analysis in the spinal fluid. CSF spinal fluid did come back negative for HSV 1 and HSV 2. The patient has shown significant improvement today in that there is less swelling of the left eyelid. He also states that since early afternoon his double vision has completely resolved. His IV acyclovir has been discontinued by infectious disease. Patient continues to have good improvement with his headache symptoms. He feels it is much better today. As noted yesterday his diplopia has completely resolved. He has responded well to steroids which may be slowly tapered to oral prednisone. Infectious diseases recommending no antivirals are needed for him at discharge. Patient possibly will be able to be discharged home soon and may follow-up with Dr. Grigsby in the outpatient clinic. Patient has been cleared for discharge home later today. He should follow up with his flow coordinator as noted above early next week. We will continue close neurological follow-up for the patient during this admission. His overall prognosis remains guarded. Objective - Vital Signs Vital signs: Vital Signs Temp 97.5 F L 01/20/18 05:45 Pulse 104 H 01/20/18 05:45 Resp 20 01/20/18 05:45 BP 133/76 01/20/18 05:45 Pulse Ox 94 L 01/20/18 05:45 Intake & Output 01/19/18 01/20/18 01/20/18 18:59 06:59 18:59 Intake Total 560 500 Output Total 2 Balance 560 498 Weight 89.539 kg Intake: Oral 560 500 Output: Urine 2 Other: Voiding Method Toilet Toilet Toilet # Voids 1 0 1 # Bowel Movements 0 - Exam Physical examination: PHYSICAL EXAMINATION: Patient is resting comfortably in bed. VITAL SIGNS: Blood pressure is [133/76]. Heart rate is [104]. Respiration is [20 ]. Temperature is [97.5]. HEENT: Head is atraumatic, neck is supple, there were no carotid bruits. CHEST: Lungs are clear to auscultation and percussion. CARDIAC: S1, S2 normal rate and rhythm. There is no murmur. ABDOMEN: Soft and nontender. Bowel sounds are present. EXTREMITIES: There is no pedal edema. Peripheral pulses are present. Neurological examination: Patient's neurological examination is unchanged from yesterday. He continues to have swelling around his left eyelid. He is being treated for his herpes zoster ophthalmicus involving the left eye. His neurological examination reveals slight eye gaze weakness on testing. There is no focal motor deficit on examination. - Labs CBC & Chem 7: 01/17/18 15:00 01/17/18 15:00 Labs: Microbiology - Last 24 Hours (Table) 01/17/18 11:30 CSF Gram Stain - Preliminary Cerebral Spinal Fluid CSF Culture - Preliminary 01/18/18 11:30 ANGELA Preparation - Final Cerebral Spinal Fluid Assessment and Plan (1) Headache Current Visit: Yes Status: Acute Code(s): R51 - HEADACHE SNOMED Code(s): 79597105 (2) Herpes zoster ophthalmicus of left eye Current Visit: Yes Status: Acute Code(s): B02.30 - ZOSTER OCULAR DISEASE, UNSPECIFIED SNOMED Code(s): 86427382 Plan: Patient being treated for acute symptoms of herpes zoster ophthalmicus. This is affected his left eye. He is showing good improvement today since admission to hospital a few days ago. He did undergo an MRI of the brain which did come back negative for any acute changes. No evidence of brainstem stroke to produce diplopia. The patient continues on IV acyclovir. His diplopia completely resolve this afternoon. His left eyelid swelling also much improved today. We will continue to follow his progress closely during this admission. Spinal fluid results are as noted above. His overall prognosis at this time remains guarded. Patient today has noted improvement with this headache. This may be due to better control of his blood pressure. He has responded well to steroid treatment as per infectious disease. He may be tapered down to oral prednisone at discharge. Patient is being ready for possible discharge home today. He should follow-up with Dr. Danielle MON in the ophthalmology clinic next week. His overall prognosis at this time remains guarded.
--- NOTE | 2018-01-20 18:07 | P.DS ---
Providers Date of admission: 01/17/18 14:42 Attending physician: Cyndi Pruett Consults: 01/17/18 14:42 Consult Physician Stat Consulting Provider: Lincoln Howe Consult Reason/Comments: diplopia Do you want consulting provider notified?: Yes 01/17/18 17:09 Consult Physician Routine Consulting Provider: Estee Martinez Consult Reason/Comments: Herpis opthalmicus Do you want consulting provider notified?: Yes 01/18/18 07:00 Consult to Anesthesia Routine Consulting Provider: Anesthesia,Services Consult Reason/Comments: Lumbar puncture to r/o herpes zoster encephalitis. Primary care physician: Stated None Hospital Course: 62-year-old male who presents with a chief complaint of a headache secondary to herpes zoster ophthalmicus of his left eye. The patient was diagnosed a week and a half ago and has been completing outpatient management. However he presents this time complaining of diplopia patient has been evaluated by neurology and ID consult tenths. Brain MRI was negative for acute stroke. LP was negative for infection. Patient already completed his course of antibiotics with acyclovir as an outpatient. Patient was started on steroids, and he showed interval improvement and his diplopia resolved completely yesterday and today. Patient feels his vision is back to normal. He is asymptomatic. Patient was cleared by neurology and ID for discharge, as per ID no need for antibiotic coverage however he was discharged on tapered dose of steroids. Prescriptions provided the patient and informed staff give him eyedrops upon discharge Patient was found stable and can be discharged home however he needs follow-up as an outpatient as per patient he said he doesn't have a PCP but he is going to see his property damage claims adjustor in one week. Physical examination Gen. AAOX3, not in distress eye Exam: Mild erythema of the left conjunctiva, improving. Right eye exam was unremarkable CVS: S1-S2, RRR, no murmur Lungs: B/L CTA, no wheezing, not in respiratory distress Abdomen: soft, no distention, no tenderness, positive bowel sounds Extremities: no edema or induration, palpable peripheral pulses Time spent more than 35 minutes Patient Condition at Discharge: Good Plan - Discharge Summary New Discharge Prescriptions: New Hydrocodone/Acetaminophen [[place] 5-325] 1 tab PO Q6H PRN #16 tab PRN Reason: Pain predniSONE 10 mg PO DIRECTED #13 tab Continue prednisoLONE ACETATE 1% OPHTH [Pred Forte 1%] 1 drops LEFT EYE QID Timolol [Betimol 0.5% Ophth Soln] 1 drop LEFT EYE BID Discontinued valACYclovir HCL [Valtrex] 1,000 mg PO Q8HR Discharge Medication List Timolol [Betimol 0.5% Ophth Soln] 1 drop LEFT EYE BID 01/17/18 [History] prednisoLONE ACETATE 1% OPHTH [Pred Forte 1%] 1 drops LEFT EYE QID 01/17/18 [ History] Hydrocodone/Acetaminophen [[place] 5-325] 1 tab PO Q6H PRN #16 tab 01/20/18 [Rx] predniSONE 10 mg PO DIRECTED #13 tab 01/20/18 [Rx] Follow up Appointment(s)/Referral(s): Gerber Flannery MD [STAFF PHYSICIAN] - 01/27/18 (Office closed, please call for appointment. ) Tank Nair DO [REFERRING] - 1 Week (Office closed, please call for appointment.) Patient Instructions/Handouts: Shingles (DC) Activity/Diet/Wound Care/Special Instructions: Regular diet. Activity as tolerated. Discharge Disposition: HOME SELF-CARE
--- NOTE | 2018-01-26 10:14 | P.PCN ---
Date of Procedure: 01/18/18 Surgeon: James Peterson Description of Procedure: Preoperative diagnosis: Herpes zoster Post operative diagnoses: Herpes zoster Anesthesia local infiltration with lidocaine 1% 2 mL. Condition: stable Complication: none. Description of the procedure procedure risk and benefits discussed with the patient and family, consent signed. Patient was taken to the procedure area placed in seated position. Local infiltration of the skin and subcutaneous tissue with lidocaine 1%. A 22-gauge Quincke-type needle advanced slowly at L4 - 5 interlaminar space.CSF was collected. A total of 9 ML of clear cerebrospinal fluid collected in 4 different tubes 2-2-1/2 mL in each, then the needle removed and a Band-Aid applied and patient tolerated the procedure well without any complications.
== END 2018-01-20 17:00 | disposition home or self-care (01) | DRG 125 ==
LOC: EC 12:53 → 4MS4W 14:42
PROVIDERS: ADMIT Hospitalist; ATTEND Hospitalist
PROC: 009U3ZX Drainage of Spinal Canal, Percutaneous Approach, Diagnostic (ICD-10-PCS; principal; 2018-01-18 11:30)
DX: B02.30 Zoster ocular disease, unspecified (principal); B02.32 Zoster iridocyclitis; R51 Headache; Z88.0 Allergy status to penicillin
CPT/HCPCS: 62270; 70553; 80048; 82945; 84157; 85025; 87070; 87205; 87220; 87529; 89050; 96365; 96366; 96375; 96376; 99284

== ENCOUNTER 2018-02-09 20:58 | Emergency (ER) | payer OTHER ==
[2018-02-09] MEDS ORDERED: ACYCLOVIR SODIUM 500 MG in SODIUM CHLORIDE 0.9% 100 ML IVPB STA (22:41)
[2018-02-09] MEDS ORDERED: cloNIDine HCL 0.2 MG TAB PO STA (22:48)
--- NOTE | 2018-02-09 22:48 | ED ---
Eye Problem HPI - General Chief complaint: Eye Problems Stated complaint: shingles/double vision/headaches Time Seen by Provider: 02/09/18 22:09 Source: patient Mode of arrival: ambulatory Limitations: no limitations - History of Present Illness Initial comments: This patient is a 62-year-old man who states he was sent in by the clinic today to have further treatment for herpes zoster ophthalmicus. The patient had been admitted here at the end of December. He states he had the onset of shingles near the left eye a little after the middle of December. He underwent an outpatient course, and then was admitted here where he had neurology and infectious disease consultation. He also was seeing Dr. Grigsby, as an outpatient for the ophthalmic complications. Patient went home, and then today went for follow-up with his new physician, and was sent back from the clinic to have IV acyclovir. Patient states that he is having a little bit of diplopia but that he was having that through his initial course. He is not having any new pain or other symptoms. No fevers. chief complaint: other -: week(s) Location: left eye Place: home If Injury: none Eye Symptoms: other Severity: mild Consistency: constant Associated Symptoms: none Treatments Prior to Arrival: other - Related Data Home Medications Medication Instructions Recorded Confirmed prednisoLONE ACETATE 1% OPHTH 1 drops LEFT EYE DAILY 01/17/18 02/09/18 [Pred Forte 1%] Ibuprofen [Motrin Ib] 600 mg PO Q6H PRN 02/09/18 02/09/18 valACYclovir HCL [Valtrex] 1,000 mg PO TID PRN 02/09/18 02/09/18 Previous Rx's Medication Instructions Recorded Hydrocodone/Acetaminophen [[place] 1 tab PO Q6H PRN #16 tab 01/20/18 5-325] Allergies Allergy/AdvReac Type Severity Reaction Status Date / Time Penicillins Allergy Rash/Hives Verified 02/09/18 21:55 Review of Systems ROS Statement: Those systems with pertinent positive or pertinent negative responses have been documented in the HPI. ROS Other: All systems not noted in ROS Statement are negative. Constitutional: Denies: fever, chills, weakness Eyes: Reports: other (Diplopia. Left eye redness). Denies: eye discharge, vision change ENT: Denies: ear pain Respiratory: Denies: cough, dyspnea Cardiovascular: Denies: chest pain, palpitations Gastrointestinal: Denies: abdominal pain, vomiting, diarrhea Skin: Denies: rash (States the rash has resolved) Neurological: Denies: headache, weakness, numbness, paresthesias Past Medical History Past Medical History: No Reported History Additional Past Medical History / Comment(s): shingles. History of Any Multi-Drug Resistant Organisms: None Reported Past Surgical History: Hernia Repair Past Psychological History: No Psychological Hx Reported Smoking Status: Never smoker Past Alcohol Use History: None Reported Past Drug Use History: None Reported General Exam Limitations: no limitations General appearance: alert, in no apparent distress Head exam: Present: atraumatic, normocephalic Eye exam: Present: PERRL, EOMI, conjunctival injection (Left-sided). Absent: scleral icterus, nystagmus, periorbital swelling, periorbital tenderness ENT exam: Present: normal oropharynx Neck exam: Present: normal inspection, full ROM. Absent: lymphadenopathy Respiratory exam: Present: normal lung sounds bilaterally. Absent: respiratory distress, wheezes, rales, rhonchi, stridor Cardiovascular Exam: Present: regular rate, normal rhythm, normal heart sounds GI/Abdominal exam: Present: soft. Absent: distended, tenderness, guarding, rebound Neurological exam: Present: alert, normal gait Skin exam: Present: warm, dry, intact, normal color. Absent: rash Course Vital Signs 02/09/18 02/09/18 02/09/18 21:07 23:12 23:35 Temperature 98.4 F Pulse Rate 80 72 70 Respiratory 20 18 18 Rate Blood Pressure 163/109 154/91 155/86 O2 Sat by Pulse 97 95 95 Oximetry 02/10/18 00:24 Temperature 98.7 F Pulse Rate 69 Respiratory 18 Rate Blood Pressure O2 Sat by Pulse 135 H Oximetry Medical Decision Making - Medical Decision Making The patient is 62-year-old man with recent left-sided herpes zoster ophthalmicus. He was sent in to have IV acyclovir. He had apparently seen a new physician today who did not reportedly have all of the history regarding his treatment course for the zoster. My understanding, after reviewing the patient's records, is that he has completed the full course of this medication and there does seem to be decent treatment results, the patient's vesicles have all cleared. The eye exam also does not reveal any acute inflammation, there does appear to be some resolving signs. As the patient was sent in for medication, he was given a dose of that here and he is going to follow with Dr. Grigsby in the clinic tomorrow, also recommended to see his infectious disease specialist Dr. Martinez. Discussed return parameters - Lab Data Result diagrams: 02/09/18 22:57 02/09/18 22:57 Lab Results 02/09/18 02/09/18 Range/Units 22:57 22:57 WBC 6.2 (3.8-10.6) k/uL RBC 4.95 (4.30-5.90) m/uL Hgb 15.5 (13.0-17.5) gm/dL Hct 45.0 (39.0-53.0) % MCV 90.9 (80.0-100.0) fL MCH 31.3 (25.0-35.0) pg MCHC 34.4 (31.0-37.0) g/dL RDW 13.5 (11.5-15.5) % Plt Count 200 (150-450) k/uL Neutrophils % 66 % Lymphocytes % 22 % Monocytes % 6 % Eosinophils % 4 % Basophils % 0 % Neutrophils # 4.1 (1.3-7.7) k/uL Lymphocytes # 1.4 (1.0-4.8) k/uL Monocytes # 0.4 (0-1.0) k/uL Eosinophils # 0.3 (0-0.7) k/uL Basophils # 0.0 (0-0.2) k/uL Sodium 142 (137-145) mmol/L Potassium 4.2 (3.5-5.1) mmol/L Chloride 106 (98-107) mmol/L Carbon Dioxide 24 (22-30) mmol/L Anion Gap 12 mmol/L BUN 21 H (9-20) mg/dL Creatinine 1.00 (0.66-1.25) mg/dL Est GFR (CKD-EPI)AfAm >90 (>60 ml/min/1.73 sqM) Est GFR (CKD-EPI)NonAf 82 (>60 ml/min/1.73 sqM) Glucose 90 (74-99) mg/dL Calcium 9.3 (8.4-10.2) mg/dL C-Reactive Protein <5.0 (<10.0) mg/L Disposition Clinical Impression: Herpes zoster ophthalmicus of left eye, Hypertension Disposition: HOME SELF-CARE Condition: Fair Instructions: Shingles (ED), Hypertension (ED) Is patient prescribed a controlled substance at d/c from ED?: No Referrals: Nav Stevenson DO [Primary Care Provider] - 1-2 days Ana Cristina Grigsby MD [STAFF PHYSICIAN] - 1-2 days Estee Martinez MD [STAFF PHYSICIAN] - 1-2 days
[2018-02-09 23:13] VITALS: RESP 18
[2018-02-09 23:15] LABS: Basophils % (A) 0 %; Eosinophils # (A) 0.3 k/uL (0-0.7); Eosinophils % (A) 4 %; HGB 15.5 gm/dL (13.0-17.5); Lymphocytes # (A) 1.4 k/uL (1.0-4.8); Lymphocytes % (A) 22 %; MCH 31.3 pg (25.0-35.0); MCHC 34.4 g/dL (31.0-37.0); MCV 90.9 fL (80.0-100.0); Mean Platelet Volume 6.8; Monocytes # (A) 0.4 k/uL (0-1.0); Monocytes % (A) 6 %; Neutrophils # (A) 4.1 k/uL (1.3-7.7); Neutrophils % (A) 66 %; Platelet Count 200 k/uL (150-450); RBC 4.95 m/uL (4.30-5.90); RDW 13.5 % (11.5-15.5); WBC 6.2 k/uL (3.8-10.6)
[2018-02-09 23:26] LABS: Anion Gap 12 mmol/L; Blood Urea Nitrogen 21 mg/dL (9-20); C Reactive Protein <5.0 mg/L (<10.0); Calcium 9.3 mg/dL (8.4-10.2); Carbon Dioxide 24 mmol/L (22-30); Chloride 106 mmol/L (98-107); Glucose 90 mg/dL (74-99); Potassium 4.2 mmol/L (3.5-5.1); Sodium 142 mmol/L (137-145)
[2018-02-09 23:37] VITALS: BP 155/86
[2018-02-10 00:25] VITALS: PULSE 69; TEMP 98.7
== END 2018-02-10 00:26 | disposition home or self-care (01) ==
LOC: EC 20:58
DX: B02.30 Zoster ocular disease, unspecified (principal); I10 Essential (primary) hypertension; Z79.52 Long term (current) use of systemic steroids; Z88.0 Allergy status to penicillin
CPT/HCPCS: 36415; 80048; 85025; 86140; 99283; 96365; J0133

== ENCOUNTER → 2023-02-02 | Outpatient (CLI) | payer BC, MEDICARE ==
--- NOTE | 2023-02-02 09:23 | US ---
EXAMINATION TYPE: US Aorta Screening DATE OF EXAM: 02/02/2023 COMPARISON: NONE CLINICAL INDICATION: Male, 67 years old with history of Z87.89 PERSONAL HISTORY OF NICOTINE DEPEND1, Z13.6 ENCOUNTER; screening TECHNIQUE: Multiple sonographic images of the abdominal aorta are obtained. FINDINGS: EXAM MEASUREMENTS: Abdominal Aorta: Proximal: 2.5 x 2.6cm Mid: 1.9 x 2.2cm Distal: 2.3 x 2.6cm Bifurcation: obscured ORDER PLANNER NOTES: *Technical limitations due to patient's body habitus and large amount of overlying bowel content. Visualized segments show no evidence of AAA at this time IMPRESSION: Limited evaluation due to patient's body habitus and overlying bowel gas. No visualized evidence for abdominal aortic aneurysm within these limitations. Ectasia of the proximal and distal abdominal aort a measuring up to 2.6 cm.
== END | disposition home or self-care (01) ==
LOC: RADUSWWP 08:50
PROVIDERS: ATTEND Family Medicine
DX: Z13.6 Encounter for screening for cardiovascular disorders (principal); I77.811 Abdominal aortic ectasia; Z87.891 Personal history of nicotine dependence
CPT/HCPCS: 76706

== ENCOUNTER 2024-06-06 08:47 | Day surgery (SDC) | payer MEDICARE ==
[2024-06-06 09:39] VITALS: RESP 18; TEMP 98.3
[2024-06-06] MEDS: LACTATED RINGERS 1,000 ML BAG IV STA (09:47)
[2024-06-06] MEDS: IV FLUID CONTINUATION 1,000 ML IV ONE (09:48)
[2024-06-06] MEDS ORDERED: PROPOFOL 10 MG/ML 20 ML VIAL IV ONE (10:42)
--- NOTE | 2024-06-06 10:56 | P.PCN ---
Date of Procedure: 06/06/24 Procedure(s) Performed: BRIEF HISTORY: Patient is a 68-year-old pleasant white male scheduled for an elective colonoscopy as a part of screening for colon cancer. PROCEDURE PERFORMED: Colonoscopy with snare polypectomy. PREOPERATIVE DIAGNOSIS: Screening for colon cancer. IV sedation per Anesthesia. PROCEDURE: After informed consent was obtained, the patient, was brought into the endoscopy unit. IV sedation was administered by Anesthesia under continuous monitoring. Digital rectal examination was normal. Initially the Olympus CF-160 flexible video colonoscope was then inserted in the rectum, gradually advanced into the cecum without any difficulty. Careful examination was performed as the scope was gradually being withdrawn. Ileocecal valve and the appendiceal orifice were visualized and appeared normal. Prep was excellent. Mucosa of the cecum, ascending colon, appeared normal. The transverse colon approximately 70 cm from the anal verge there was a 1 cm broad-based polyp removed by snare polypectomy. In the descending colon there was a 5 mm sessile polyp removed by cold snare polypectomy. Scattered left-sided diverticulosis seen. Rest of the transverse colon, descending colon, sigmoid colon, and rectum appeared normal. Retroflexion was performed in the rectum and no lesions were seen. The patient tolerated the procedure well. IMPRESSION: 1 cm transverse colon polyp status post snare polypectomy 5 mm descending colon polyp status post cold snare polypectomy Scattered left-sided diverticulosis RECOMMENDATIONS: Findings of this examination were discussed with the patient as well as his family. He was advised to follow-up with the biopsy results. If the biopsy reveals adenoma he can have repeat colonoscopy in 3 years..
[2024-06-06 11:50] VITALS: BP 124/58; PULSE 81
== END 2024-06-06 11:51 | disposition home or self-care (01) ==
LOC: ORWHC2ENDO 08:47
PROVIDERS: ATTEND Internal Medicine Gastroenterology
CPT/HCPCS: 45385; 88305